=== PATIENT | female | born 1975 | race Caucasian/White ===

== ENCOUNTER 2022-04-23 09:48 | Day surgery (SDC) | payer MEDICAID ==
[~2022-04-23] VITALS: Ht 160 cm; Wt 108.9 kg
[2022-04-23] MEDS ORDERED: BUPIVACAINE /EPINEPHRINE/PF 0.5% 30 ML VIAL INJ ONE (13:10)
[2022-04-23] MEDS ORDERED: SEVOFLURANE 15 MIN GAS INH ONE (13:10)
[2022-04-23] MEDS ORDERED: fentaNYL CITRATE 250 MCG/5 ML AMP ONE (13:10)
[2022-04-23] MEDS ORDERED: ceFAZolin SODIUM 1 GM VIAL ONE (13:10)
[2022-04-23] MEDS ORDERED: ONDANSETRON HCL 4 MG/2 ML VIAL ONE (13:10)
[2022-04-23] MEDS ORDERED: LR 1,000 ML IV.SOLN IV ONE (13:10)
[2022-04-23] MEDS ORDERED: LIDOCAINE 1% 10 MG/ML, 20 ML MDV ONE (13:10)
[2022-04-23] MEDS ORDERED: PROPOFOL 200MG/ 20ML VIAL (DIPRIVAN) IV ONE (13:10)
[2022-04-23] MEDS ORDERED: NS IRRIG SOLN 1000 ML IR ONE (13:10)
[2022-04-23] MEDS ORDERED: ONDANSETRON HCL 4 MG/2 ML VIAL IVP PRN (13:45)
[2022-04-23] MEDS ORDERED: KETOROLAC TROMETHAMINE 30 MG VIAL IVP PRN (13:45)
[2022-04-23] MEDS ORDERED: HYDROmorphone 1 MG/ML INJ. CARTRIDGE IVP PRN (13:45)
[2022-04-23] MEDS ORDERED: LR 1,000 ML IV SCH (13:45)
[2022-04-23] MEDS ORDERED: MEPERIDINE HCL/PF 25 MG/ML DISP.SYRIN IVP PRN (13:45)
[2022-04-23] MEDS ORDERED: METOCLOPRAMIDE HCL 10 MG/2 ML VIAL IVP PRN (13:45)
[2022-04-23] MEDS ORDERED: KETOROLAC TROMETHAMINE 30 MG VIAL ONE (14:16)
[2022-04-23 17:14] VITALS: BP_SYST 100
== END 2022-04-23 16:40 | disposition home or self-care (01) ==
LOC: SDS 09:48 → SMU 09:49 → SDS 16:40
PROVIDERS: ATTEND Orthopaedic Surgery Sports Medicine
DX: M65.331 Trigger finger, right middle finger (principal); E11.9 Type 2 diabetes mellitus without complications; E66.9 Obesity, unspecified; Z68.42 Body mass index [BMI] 45.0-49.9, adult; I10 Essential (primary) hypertension; Z90.49 Acquired absence of other specified parts of digestive tract; Z90.710 Acquired absence of both cervix and uterus; Z20.822 Contact with and (suspected) exposure to COVID-19; Z79.899 Other long term (current) drug therapy
CPT/HCPCS: 87081; 26055; 82962; 36415; 87426; J3490; J0690; J1885; J2001; J2405; J2704; J3010; J7120

== ENCOUNTER 2022-05-30 06:00 | Day surgery (SDC) | payer MEDICAID ==
[~2022-05-30] VITALS: Ht 160 cm; Wt 111.1 kg
[2022-05-30] MEDS ORDERED: NS IRRIG SOLN 1000 ML IR ONE (07:20)
[2022-05-30] MEDS ORDERED: METOCLOPRAMIDE HCL 10 MG/2 ML VIAL ONE (07:20)
[2022-05-30] MEDS ORDERED: KETOROLAC TROMETHAMINE 30 MG VIAL ONE (07:20)
[2022-05-30] MEDS ORDERED: VANCOMYCIN HCL 1000 MG/VIAL IV ONE (07:20)
[2022-05-30] MEDS ORDERED: ceFAZolin SODIUM 2 GM VIAL ONE (07:20)
[2022-05-30] MEDS ORDERED: MIDAZOLAM HCL 2 MG/2 ML VIAL (VERSED) ONE (07:20)
[2022-05-30] MEDS ORDERED: fentaNYL CITRATE/PF 100 MCG/2 ML AMP ONE (07:20)
[2022-05-30] MEDS ORDERED: SEVOFLURANE 15 MIN GAS INH ONE (07:20)
[2022-05-30] MEDS ORDERED: BUPIVACAINE /PF 0.5% 30 ML VIAL ONE (07:20)
[2022-05-30] MEDS ORDERED: LIDOCAINE 2%, 20 ML MDV ONE (07:20)
[2022-05-30] MEDS ORDERED: LR 1,000 ML IV.SOLN IV ONE (07:20)
[2022-05-30] MEDS ORDERED: PROPOFOL 200MG/ 20ML VIAL (DIPRIVAN) IV ONE (07:20)
[2022-05-30] MEDS ORDERED: ONDANSETRON HCL 4 MG/2 ML VIAL IVP PRN (08:00)
[2022-05-30] MEDS ORDERED: HYDROmorphone 1 MG/ML INJ. CARTRIDGE IVP PRN (08:00)
[2022-05-30] MEDS ORDERED: MEPERIDINE HCL/PF 25 MG/ML DISP.SYRIN IVP PRN (08:00)
[2022-05-30] MEDS ORDERED: LR 1,000 ML IV SCH (08:00)
[2022-05-30] MEDS ORDERED: HYDROmorphone 1 MG/ML INJ. CARTRIDGE ONE (08:57)
[2022-05-30] MEDS: HYDROmorphone 1 MG/ML INJ. CARTRIDGE IVP PRN ×2 (08:57→09:06)
[2022-05-30 10:25] VITALS: BP_SYST 121
== END 2022-05-30 11:30 | disposition home or self-care (01) ==
LOC: SMU 06:00 → SDS 06:00
PROVIDERS: ATTEND Orthopaedic Surgery Sports Medicine
DX: M01.X41 Direct infection of right hand in infectious and parasitic diseases classified elsewhere (principal); L08.9 Local infection of the skin and subcutaneous tissue, unspecified; I10 Essential (primary) hypertension; E11.9 Type 2 diabetes mellitus without complications; Z98.84 Bariatric surgery status; Z90.710 Acquired absence of both cervix and uterus; Z90.49 Acquired absence of other specified parts of digestive tract; Z79.899 Other long term (current) drug therapy; Z20.822 Contact with and (suspected) exposure to COVID-19
CPT/HCPCS: 87081; 10180; 82962; 87070 ×2; 87186; 36415; 82948; 87426; J3490; J1885; J2001; J2765; J3465; J2704; J3370; J3010; J1170; J7120; 87075-TC

== ENCOUNTER 2022-06-13 22:11 | Emergency (ER) | payer MEDICAID ==
[~2022-06-13] VITALS: Ht 157.5 cm; Wt 111.1 kg
[2022-06-13 22:15] VITALS: BP_SYST 143
[2022-06-13 23:41] LABS: BILIRUBIN,URINE 2+ (NEGATIVE); BLOOD, URINE 3+ (NEGATIVE); GLUCOSE,URINE 1+ (NEGATIVE); KETONES,URINE 1+ (NEGATIVE); LEUKOCYTE ESTERASE ,URINE 3+ (NEGATIVE); NITRITE, URINE POSITIVE (NEGATIVE); PH,URINE 7.5 (5.0-8.0); PROTEIN URINE 3+ (NEGATIVE)
[2022-06-13 23:48] LABS: UROBILINOGEN,URINE >=8 (0.2-1.0)
[2022-06-13 23:49] LABS: COLOR,URINE ORANGE (YELLOW)
[2022-06-13 23:50] LABS: CLARITY/URINE CLOUDY (CLEAR)
[2022-06-14 00:36] LABS: BACTERIA,URINE MANY /HPF (None Seen); RBC,URINE >100 /HPF (0-3); WBC,URINE 20-50 /HPF (0-3)
[2022-06-14] MEDS ORDERED: cefTRIAXone 1 GM in LIDOCAINE 1%, 20 ML MDV 2.1 ML IM ONE (01:00)
[2022-06-14] MEDS ORDERED: cefTRIAXone 1 GM VIAL ONE (01:11)
[2022-06-14] MEDS ORDERED: NITR50CA51 PO (01:33)
[2022-06-14] MEDS ORDERED: PHEN-726 PO (01:33)
[2022-06-14 01:38] VITALS: BP_SYST 132
== END 2022-06-14 01:36 | disposition home or self-care (01) ==
LOC: SED 22:11
DX: N39.0 Urinary tract infection, site not specified (principal); R10.30 Lower abdominal pain, unspecified; R30.9 Painful micturition, unspecified; R31.9 Hematuria, unspecified; Z79.899 Other long term (current) drug therapy
CPT/HCPCS: 99283; 81000; 87086; 87210; 96372; J0696; J2001

== ENCOUNTER 2022-09-11 22:46 | Emergency (ER) | payer MEDICAID ==
[~2022-09-11] VITALS: Ht 160 cm; Wt 108.9 kg
[~2022-09-11 22:46] MED LIST: NITR50CA51 PO; PHEN-726 PO
[2022-09-11 23:20] VITALS: BP_SYST 156; PULSE 65; RESP 17; TEMP 98; O2SAT 97
--- NOTE | 2022-09-11 23:27 | NUR ---
Patient triaged and placed in waiting room. VS checked and patient appears in no acute distress at this time. Accompanied by self, awaiting available bed, and MD notified of need for MSE.
--- NOTE | 2022-09-12 00:38 | NUR ---
Patient ambulated to [facility] in stable condition.
--- NOTE | 2022-09-12 01:29 | NUR ---
Dr. Phillip at chairside for evaluation.
--- NOTE | 2022-09-12 01:42 | NUR ---
Patient to Radiology for CXR.
[2022-09-12] MEDS ORDERED: HYDROcodone/ACETAMIN 10-325 MG TAB PO ONE (01:45)
[2022-09-12] MEDS ORDERED: DEXAMETHASONE SOD PHOSPHATE 10 MG/ML VIAL PO ONE (01:45)
[2022-09-12] MEDS ORDERED: KETOROLAC TROMETHAMINE 30 MG VIAL IM ONE (01:45)
--- NOTE | 2022-09-12 01:47 | NUR ---
Patient return to from Radiology.
--- NOTE | 2022-09-12 01:49 | NUR ---
Patient medicated with [place] 10/325 mg PO, Decadron 10 mg PO and Toradol 30 mg IM.
--- NOTE | 2022-09-12 02:00 | NUR ---
No change from previous assessment.
[2022-09-12] MEDS ORDERED: HYDR-3917 PO (02:46)
[2022-09-12] MEDS ORDERED: GABA-529 PO (02:46)
--- NOTE | 2022-09-12 02:51 | NUR ---
Dr. Phillip at chairside discussing Tx plan and will discharge patient home.
[2022-09-12 03:00] VITALS: BP_SYST 141; PULSE 72; RESP 16; TEMP 98; O2SAT 98
--- NOTE | 2022-09-12 03:02 | NUR ---
DCI, Rx and Work Excuse X 2 days given to patient. Patient acknowledges & understand DCI, Rx & Work Excuse. Patient ambulated OTD in stable condition with .
== END 2022-09-12 03:02 | disposition home or self-care (01) ==
LOC: SED 22:46
DX: S39.012A Strain of muscle, fascia and tendon of lower back, initial encounter (principal); M54.2 Cervicalgia; M25.519 Pain in unspecified shoulder; Z79.899 Other long term (current) drug therapy; X58.XXXA Exposure to other specified factors, initial encounter; Y93.89 Activity, other specified; Y92.89 Other specified places as the place of occurrence of the external cause; Y99.8 Other external cause status
CPT/HCPCS: 99283; 71046; 96372; J1100; J1885

== ENCOUNTER 2023-04-24 18:45 | Emergency (ER) | payer MEDICAID ==
[~2023-04-24] VITALS: Ht 157.5 cm; Wt 115.7 kg
[~2023-04-24 18:45] MED LIST changes: +GABA-529 PO; +HYDR-3917 PO
[2023-04-24 19:05] VITALS: BP_SYST 145; PULSE 84; RESP 17; TEMP 97.6; O2SAT 97
[2023-04-24] MEDS: methocarbamoL 500 MG TABLET PO ONE (21:14)
[2023-04-24] MEDS: NAPROXEN 250 MG TABLET PO ONE (21:15)
[2023-04-24] MEDS ORDERED: METH-634 PO (22:18)
[2023-04-24] MEDS ORDERED: NAPR-690 PO (22:18)
[2023-04-24 22:27] VITALS: BP_SYST 130; PULSE 84; RESP 17; TEMP 97.6; O2SAT 97
== END 2023-04-24 22:25 | disposition home or self-care (01) ==
LOC: SED 18:45
DX: S16.1XXA Strain of muscle, fascia and tendon at neck level, initial encounter (principal); E11.9 Type 2 diabetes mellitus without complications; Z79.899 Other long term (current) drug therapy; X58.XXXA Exposure to other specified factors, initial encounter; Y93.89 Activity, other specified; Y92.89 Other specified places as the place of occurrence of the external cause; Y99.8 Other external cause status
CPT/HCPCS: 20553; 99284

== ENCOUNTER 2023-11-16 08:49 | Emergency (ER) | payer MEDICAID ==
[~2023-11-16] VITALS: Ht 160 cm; Wt 113.4 kg
[~2023-11-16 08:49] MED LIST changes: +METH-634 PO; +NAPR-690 PO; +NITR50CA PO; -NITR50CA51 PO
[2023-11-16 08:53] VITALS: BP_SYST 146; PULSE 90; RESP 15; TEMP 97.2; O2SAT 98
[2023-11-16 09:12] LABS: BILIRUBIN,URINE NEGATIVE (NEGATIVE); BLOOD, URINE NEGATIVE (NEGATIVE); CLARITY/URINE CLEAR (CLEAR); COLOR,URINE YELLOW (YELLOW); GLUCOSE,URINE NEGATIVE (NEGATIVE); KETONES,URINE 1+ (NEGATIVE); LEUKOCYTE ESTERASE ,URINE TRACE (NEGATIVE); NITRITE, URINE NEGATIVE (NEGATIVE); PROTEIN URINE NEGATIVE (NEGATIVE)
[2023-11-16 09:21] LABS: BACTERIA,URINE FEW /HPF (None Seen); MUCUS,URINE 1+ /LPF (None Seen); RBC,URINE 0-3 /HPF (0-3)
[2023-11-16 09:24] LABS: BASOPHILS # (AUTO) 0.1 K/uL (0.0-0.2); BASOPHILS % (AUTO) 1.2 % (0.0-2.0); EOSINOPHILS # (AUTO) 0.2 K/uL (0.0-0.4); EOSINOPHILS % (AUTO) 2.5 % (0.0-4.0); HEMATOCRIT 42.8 % (36-48); HEMOGLOBIN 14.2 g/dL (12.0-16.0); LYMPHOCYTES # (AUTO) 2.1 K/uL (1.0-5.5); LYMPHOCYTES % (AUTO) 34.3 % (20.5-51.5); MEAN CORPUSCULAR HEMOGLOBIN 30 pg (27-31); MEAN CORPUSCULAR HGB CONC 33 % (32-36); MEAN CORPUSCULAR VOLUME 90 fL (79.0-98.0); MONOCYTES # (AUTO) 0.3 K/uL (0.0-1.0); MONOCYTES % (AUTO) 5.6 % (1.7-9.3); NEUTROPHILS # (AUTO) 3.4 K/uL (1.8-7.7); NEUTROPHILS % (AUTO) 56.4 % (40.0-70.0); PLATELET COUNT (AUTO) 302 K/uL (130-430); RED BLOOD CELL COUNT(AUTO) 4.77 MIL/uL (4.2-6.2); RED CELL DISTRIBUTION WIDTH 13.5 % (9.0-15.0); WHITE BLOOD COUNT (AUTO) 6.1 K/uL (4.8-10.8)
[2023-11-16 09:44] LABS: PROTHROMBIN TIME 10.9 SECS (9.5-12.5)
[2023-11-16 09:46] LABS: CALCIUM 8.9 mg/dL (8.4-11.0); CREATININE 0.8 mg/dL (0.55-1.30); POTASSIUM 3.6 mmol/L (3.5-5.1); TOTAL BILIRUBIN 0.7 mg/dL (0.0-1.0); TOTAL PROTEIN, SERUM 7.2 g/dL (6.4-8.3)
[2023-11-16 09:56] LABS: BILIRUBIN,DIRECT 0.2 mg/dL (0.0-0.3)
[2023-11-16 09:57] LABS: SERUM HCG (QUALITATIVE) NEGATIVE (NEGATIVE)
[2023-11-16] MEDS: IBUPROFEN 800 MG TABLET PO ONE (11:00)
[2023-11-16] MEDS: HYDROcodone/ACETAMIN 10-325 MG TAB PO ONE (11:00)
[2023-11-16] MEDS ORDERED: IBUP-1969 PO (12:10)
[2023-11-16] MEDS ORDERED: TRAM50TA2 PO (12:10)
[2023-11-16 12:31] VITALS: BP_SYST 127; PULSE 69; RESP 16; TEMP 97.6; O2SAT 95
== END 2023-11-16 12:26 | disposition home or self-care (01) ==
LOC: SED 08:49
DX: N83.209 Unspecified ovarian cyst, unspecified side (principal); R30.0 Dysuria; R35.0 Frequency of micturition; E11.9 Type 2 diabetes mellitus without complications
CPT/HCPCS: 36415; 80048; 80076; 81000; 81001; 81015; 82150; 83605; 83690; 84703; 85025; 85610; 85730; 87086; 99284

== ENCOUNTER 2023-12-01 18:19 | Emergency (ER) | payer MEDICAID ==
[~2023-12-01] VITALS: Ht 160 cm; Wt 113.4 kg
[~2023-12-01 18:19] MED LIST changes: +IBUP-1969 PO; +TRAM50TA2 PO
[2023-12-01 18:26] VITALS: BP_SYST 147; PULSE 76; RESP 18; TEMP 98.3; O2SAT 98
[2023-12-01 21:14] LABS: BASOPHILS # (AUTO) 0.3 K/uL (0.0-0.2); BASOPHILS % (AUTO) 3.1 % (0.0-2.0); EOSINOPHILS # (AUTO) 0.3 K/uL (0.0-0.4); EOSINOPHILS % (AUTO) 3.4 % (0.0-4.0); HEMOGLOBIN 14.3 g/dL (12.0-16.0); LYMPHOCYTES # (AUTO) 2.8 K/uL (1.0-5.5); LYMPHOCYTES % (AUTO) 35.2 % (20.5-51.5); MEAN CORPUSCULAR HEMOGLOBIN 31 pg (27-31); MEAN CORPUSCULAR HGB CONC 34 % (32-36); MEAN CORPUSCULAR VOLUME 90 fL (79.0-98.0); MONOCYTES # (AUTO) 0.8 K/uL (0.0-1.0); MONOCYTES % (AUTO) 9.5 % (1.7-9.3); NEUTROPHILS # (AUTO) 3.9 K/uL (1.8-7.7); NEUTROPHILS % (AUTO) 48.8 % (40.0-70.0); PLATELET COUNT (AUTO) 337 K/uL (130-430); RED BLOOD CELL COUNT(AUTO) 4.69 MIL/uL (4.2-6.2); RED CELL DISTRIBUTION WIDTH 13.3 % (9.0-15.0); WHITE BLOOD COUNT (AUTO) 8.1 K/uL (4.8-10.8)
[2023-12-01 21:31] LABS: BILIRUBIN,DIRECT 0.1 mg/dL (0.0-0.3); CALCIUM 8.3 mg/dL (8.4-11.0); CREATININE 0.82 mg/dL (0.55-1.30); POTASSIUM 3.9 mmol/L (3.5-5.1); TOTAL BILIRUBIN 0.3 mg/dL (0.0-1.0); TOTAL PROTEIN, SERUM 7.2 g/dL (6.4-8.3)
[2023-12-01] MEDS ORDERED: METOCLOPRAMIDE HCL 10 MG/2 ML VIAL ONE (21:42)
[2023-12-01 21:48] LABS: BILIRUBIN,URINE NEGATIVE (NEGATIVE); BLOOD, URINE NEGATIVE (NEGATIVE); CLARITY/URINE CLEAR (CLEAR); COLOR,URINE YELLOW (YELLOW); GLUCOSE,URINE NEGATIVE (NEGATIVE); KETONES,URINE NEGATIVE (NEGATIVE); LEUKOCYTE ESTERASE ,URINE NEGATIVE (NEGATIVE); NITRITE, URINE NEGATIVE (NEGATIVE); PROTEIN URINE NEGATIVE (NEGATIVE)
[2023-12-01] MEDS: NACL 0.9% 1,000 ML IV ONE (21:57)
[2023-12-01] MEDS: KETOROLAC TROMETHAMINE 30 MG VIAL IVP ONE (21:57)
[2023-12-01] MEDS: METOCLOPRAMIDE HCL 10 MG/2 ML VIAL IVP ONE (21:58)
[2023-12-01 23:49] LABS: BARBITURATE, URINE NEGATIVE (NEG <=200); BENZODIAZEPINE, URINE NEGATIVE (NEG <=150); CANNABINOID, URINE NEGATIVE (NEG <=50); COCAINE, URINE NEGATIVE (NEG <=150); METHAMPHETAMINES SCREEN,URINE NEGATIVE (NEG <=500); OPIATE, URINE NEGATIVE (NEG <=100); PHENCYCLIDINE SCREEN,URINE NEGATIVE (NEG <=25); UR TRICYCLIC ANTIDEPRESSANTS NEGATIVE (NEG <=300); URINE AMPHETAMINE NEGATIVE (NEG <=500); URINE METHADONE NEGATIVE (NEG <=200); URINE OXYCODONE SCREEN NEGATIVE (NEG <=100)
[2023-12-02 00:04] VITALS: BP_SYST 116; PULSE 60; RESP 19; TEMP 98.9; O2SAT 97
== END 2023-12-02 00:04 | disposition home or self-care (01) ==
LOC: SED 18:19
DX: N39.0 Urinary tract infection, site not specified (principal); R51.9 Headache, unspecified; E11.9 Type 2 diabetes mellitus without complications; M79.7 Fibromyalgia; Z98.84 Bariatric surgery status; Z79.899 Other long term (current) drug therapy
CPT/HCPCS: 99285; 96374; 96361; 96375; 80307; 80076; 80048; 81001; 85025; 36415; 81003; J1885; J2765; J7030